=== PATIENT | male | born 1995 | race Caucasian/White ===

== ENCOUNTER 2021-10-28 16:03 | Emergency (ER) | payer SELFPAY ==
[2021-10-28] MEDS ORDERED: Ibuprofen 600 MG Tab PO ONE (16:14)
[2021-10-28] MEDS ORDERED: Ondansetron 4 MG Tab.DIS PO ONE (16:27)
[2021-10-28 17:49] LABS: CORONAVIRUS COVID-19 NAA NEGATIVE (NEGATIVE)
[2021-10-28] MEDS ORDERED: Acetaminophen 500 MG Tab PO ONE (17:49)
== END 2021-10-28 18:48 | disposition home or self-care (01) ==
LOC: FB.ED 16:03
DX: R09.1 Pleurisy (principal); Z88.0 Allergy status to penicillin; Z20.822 Contact with and (suspected) exposure to COVID-19
CPT/HCPCS: 0241U; 36415; 85027; 99282; 99284; A9270-GY; Q0162

== ENCOUNTER 2022-06-16 19:29 | Emergency (ER) | payer SELFPAY ==
[2022-06-16] MEDS ORDERED: Azithromycin 250 MG Tab PO ONE (19:30)
== END 2022-06-16 20:15 | disposition home or self-care (01) ==
LOC: FB.ED 19:29
DX: J20.9 Acute bronchitis, unspecified (principal); J01.90 Acute sinusitis, unspecified; Z72.0 Tobacco use; Z79.899 Other long term (current) drug therapy; Z88.1 Allergy status to other antibiotic agents
CPT/HCPCS: 99283; A9270

== ENCOUNTER 2022-07-05 22:52 | Emergency (ER) | payer BC ==
[2022-07-05] MEDS ORDERED: Lidocaine 2% with EPINEPHrine 1:100,000 20 ML MDV INFILT ONE (22:53)
== END 2022-07-05 23:25 | disposition home or self-care (01) ==
LOC: FB.ED 22:52
DX: S61.012A Laceration without foreign body of left thumb without damage to nail, initial encounter (principal); Z88.0 Allergy status to penicillin; W26.0XXA Contact with knife, initial encounter; Y92.009 Unspecified place in unspecified non-institutional (private) residence as the place of occurrence of the external cause
CPT/HCPCS: 12002; 99282

== ENCOUNTER 2023-04-10 20:24 | Emergency (ER) | payer BC ==
[2023-04-10] MEDS ORDERED: Ketorolac 30 MG/ML SDV IM ONE (21:44)
== END 2023-04-10 22:21 | disposition home or self-care (01) ==
LOC: FB.ED 20:24
DX: S60.221A Contusion of right hand, initial encounter (principal); Z88.0 Allergy status to penicillin; W22.8XXA Striking against or struck by other objects, initial encounter
CPT/HCPCS: 73130; 96372; 99283; J1885